=== PATIENT | female | born 1975 ===

== ENCOUNTER 2023-03-03 05:15 | Day surgery (SDC) | payer OTHER ==
[~2023-03-03] VITALS: Ht 162.6 cm; Wt 62.6 kg
[2023-03-03] MEDS ORDERED: IBU800 MG PO (08:32)
== END 2023-03-03 13:30 | disposition home or self-care (01) ==
LOC: CIR.AMB 05:15
PROVIDERS: ATTEND Obstetrics & Gynecology Gynecology
DX: D25.0 Submucous leiomyoma of uterus (principal); N84.0 Polyp of corpus uteri; Z20.822 Contact with and (suspected) exposure to COVID-19

== ENCOUNTER 2025-03-22 06:00 | Day surgery (SDC) | payer OTHER ==
[~2025-03-22 06:00] MED LIST: IBU800 MG PO
[2025-03-22] MEDS ORDERED: fentaNYL CITRATE 50 MCG/ML AMPUL IV PUSH ONE (08:45)
[2025-03-22] MEDS ORDERED: MIDAZOLAM HCL 2 MG/2 ML VIAL IV ONE (08:45)
[2025-03-22] MEDS ORDERED: DIPHENHYDRAMINE HCL 50 MG/ML VIAL 1ML IV ONE (08:45)
== END 2025-03-22 09:50 | disposition home or self-care (01) ==
LOC: AMB-ENDOS 06:00
PROVIDERS: ATTEND Colon & Rectal Surgery
DX: D12.3 Benign neoplasm of transverse colon (principal); K63.5 Polyp of colon; K62.5 Hemorrhage of anus and rectum